=== PATIENT | male | born 1990 | race American Indian/Alaskan Native ===

== ENCOUNTER 2019-06-13 16:30 | Emergency (ER) | payer SELFPAY ==
[2019-06-13 17:09] VITALS: BP 132/73
--- NOTE | 2019-06-13 18:18 | Emergency Department Report ---
ED General Adult HPI - General Chief complaint: Upper Respiratory Infection Stated complaint: CHEST PAIN Time Seen by Provider: 06/13/19 18:13 Source: patient Mode of arrival: Ambulatory Limitations: No Limitations - History of Present Illness Initial comments: reports he was working around a lot of dust today and then began to have chest pain it is better now, no associated symptoms other than slight cough no risk factors for ACS or PE -: hour(s) (8), This morning Location: chest Radiation: non-radiation Severity scale (0 -10): 5 Quality: aching Consistency: now resolved Improves with: none Worsens with: none Associated Symptoms: denies other symptoms Treatments Prior to Arrival: none - Related Data Previous Rx's Medication Instructions Recorded Last Taken Type HYDROcodone/APAP 5-325 [Mobile 1 each PO Q6HR PRN #7 tablet 04/03/14 Unknown Rx 5-325 mg TAB] Ibuprofen [Motrin] 800 mg PO Q8HR PRN #30 tablet 07/22/15 Unknown Rx methOCARBAMOL [Robaxin TAB] 500 mg PO BID #10 tab 07/22/15 Unknown Rx traMADol [Ultram] 50 mg PO Q6HR PRN #14 tablet 07/22/15 Unknown Rx Albuterol Sulfate [Proair 180 mcg IH Q6HR #1 aer.pow.ba 06/13/19 Unknown Rx Respiclick] methylPREDNISolone [Medrol 4MG 4 mg PO DAILY #1 tab.ds.pk 06/13/19 Unknown Rx DOSEPAK (21 tabs)] Allergies Allergy/AdvReac Type Severity Reaction Status Date / Time No Known Allergies Allergy Verified 03/25/14 01:04 ED Review of Systems ROS: Stated complaint: CHEST PAIN Other details as noted in HPI Comment: All other systems reviewed and negative ED Past Medical Hx - Past Medical History Previous Medical History?: No - Surgical History Past Surgical History?: No - Social History Smoking Status: Current Some Day Smoker Substance Use Type: Marijuana - Medications Home Medications: Home Medications Medication Instructions Recorded Confirmed Last Taken Type HYDROcodone/APAP 5-325 [Mobile 1 each PO Q6HR PRN #7 tablet 04/03/14 Unknown Rx 5-325 mg TAB] Ibuprofen [Motrin] 800 mg PO Q8HR PRN #30 tablet 07/22/15 Unknown Rx methOCARBAMOL [Robaxin TAB] 500 mg PO BID #10 tab 07/22/15 Unknown Rx traMADol [Ultram] 50 mg PO Q6HR PRN #14 tablet 07/22/15 Unknown Rx Albuterol Sulfate [Proair 180 mcg IH Q6HR #1 aer.pow.ba 06/13/19 Unknown Rx Respiclick] methylPREDNISolone [Medrol 4MG 4 mg PO DAILY #1 tab.ds.pk 06/13/19 Unknown Rx DOSEPAK (21 tabs)] ED Physical Exam - General Limitations: No Limitations General appearance: alert, in no apparent distress - Head Head exam: Present: atraumatic, normocephalic - Eye Eye exam: Present: normal appearance - ENT ENT exam: Present: mucous membranes moist - Neck Neck exam: Present: normal inspection - Respiratory Respiratory exam: Present: wheezes (few). Absent: respiratory distress - Cardiovascular Cardiovascular Exam: Present: regular rate, normal rhythm. Absent: systolic murmur, diastolic murmur, rubs, gallop - GI/Abdominal GI/Abdominal exam: Present: soft, normal bowel sounds - Rectal Rectal exam: Present: deferred - Extremities Exam Extremities exam: Present: normal inspection - Back Exam Back exam: Present: normal inspection - Neurological Exam Neurological exam: Present: alert, oriented X3 - Psychiatric Psychiatric exam: Present: normal affect, normal mood - Skin Skin exam: Present: warm, dry, intact, normal color. Absent: rash ED Course Vital Signs 06/13/19 17:07 Temperature 98.3 F Pulse Rate 83 Respiratory 18 Rate Blood Pressure 132/73 O2 Sat by Pulse 99 Oximetry ED Medical Decision Making - EKG Data -: EKG Interpreted by Me EKG shows normal: sinus rhythm, axis, intervals, QRS complexes Rate: normal - EKG Data Interpretation: nonspecific ST-T wave heladio (JEFF essentially diffusely, no reciprocal change ) - Radiology Data Radiology results: report reviewed, image reviewed negative - Medical Decision Making had CP after breathing in a lot of dust at work today, now resolved exam with few wheezes CXR clear EKG with nonspecific ST elevations w/o reciprocal changes, consider early repolarization most likely, NO STEMI. Pericarditis considered but less likely. Recommend PCP, cards follow up. heart 1 wells pe 0 - Differential Diagnosis pneumonitis, asthma, unlikely ACS, unlikely PE, unlikely dissection Critical care attestation.: If time is entered above; I have spent that time in minutes in the direct care of this critically ill patient, excluding procedure time. ED Disposition Clinical Impression: Atypical chest pain Disposition: DC-01 TO HOME OR SELFCARE Is pt being admited?: No Condition: Good Instructions: Chest Pain (ED) Prescriptions: methylPREDNISolone [Medrol 4MG DOSEPAK (21 tabs)] 4 mg PO DAILY #1 tab.ds.pk Albuterol Sulfate [Proair Respiclick] 180 mcg IH Q6HR #1 aer.pow.ba Referrals: AMY MAGAÑA MD [Staff Physician] - 3-5 Days Forms: Work/School Release Form(ED) Time of Disposition: 18:53
--- NOTE | 2019-06-13 18:25 | XRay Report ---
CHEST 2 VIEWS INDICATION / CLINICAL INFORMATION: Chest Pain. COMPARISON: None available. FINDINGS: SUPPORT DEVICES: None. HEART / MEDIASTINUM: No significant abnormality. LUNGS / PLEURA: No significant pulmonary or pleural abnormality. No pneumothorax. ADDITIONAL FINDINGS: There is a small metallic radiopaque foreign object projecting adjacent to the r ight heart border inferiorly. IMPRESSION: 1. No significant abnormality. 2. Small radiopaque metallic object is present adjacent to the right heart border. Signer Name: Judit Reyes MD Signed: 06/13/2019 6:20 PM Workstation Name: [id number]
== END 2019-06-13 19:25 | disposition home or self-care (01) ==
LOC: ED 16:30
DX: R07.89 Other chest pain (principal); F17.200 Nicotine dependence, unspecified, uncomplicated; F12.10 Cannabis abuse, uncomplicated; Z79.899 Other long term (current) drug therapy
CPT/HCPCS: 71046; 93005; 93010